=== PATIENT | female | born 1950 | race Caucasian/White ===

== ENCOUNTER 2018-08-31 16:35 | Emergency (ER) | payer MEDICARE ==
[2018-08-31] MEDS ORDERED: 0.9 % SODIUM CHLORIDE 1,000 ML IV ONE (16:55)
--- NOTE | 2018-08-31 16:58 | ED Physician Documentation ---
General Adult - HISTORIAN Historian: patient - HPI Stated Complaint: slurred speech on and off x 1 week Chief Complaint: General Adult Onset: days ago (7) Timing: still present Severity: mild Further Comments: yes (Per niece with her last week she had several days where when she talked to her on the phone she did not pick her words right in response and she acted confused with talk. She did not seek care. She states she took the pt to dinner last night and there were only "some" issues with speech and talk. She states she talked to her at 0900 this am and she was "off" so she went to see her and her speech did not match conversation. She has been able to walk and move without incident. She has no other complaints. She has HTN that she is aware of and does not take her meds.) - ROS CONST: no problems EYES/ENT: denies: problems with vision, sore throat CVS/RESP: none GI/: none MS/SKIN/LYMPH: none NEURO/PSYCH: difficulty with speech. denies: difficulty walking - PAST HX Past History: hypertension (not treated ) Immunizations: UTD Allergies/Adverse Reactions: Allergies Allergy/AdvReac Type Severity Reaction Status Date / Time No Known Allergies Allergy Verified 08/31/18 17:27 - SOCIAL HX Smoking History: non-smoker Alcohol Use: none Drug Use: none - FAMILY HX Family History: No - REVIEWED ASSESSMENTS Nursing Assessment Reviewed: Yes Vitals Reviewed: Yes Progress - Progress Progress: 1710: [facility] DG 1735: discussed plan of care with pt and niece DG 1809: Dr Sainz is accepting [facility] ED Results Lab/Radiology - Radiology Radiology Impressions: Head CT without contrast History: Aphasia and slurred speech with altered mental status Technique: Axial images were obtained from the skull base to the vertex without IV contrast. Findings: There is age-related cortical volume loss. 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 Mild areas periventricular white matter lucency are present consistent with mild small vessel ischemic disease. There is no positive mass effect or intra/extra-axial hemorrhage. 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 Paranasal sinuses and mastoid air cells are clear. Impression: No acute intracranial abnormality. 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 These findings were discussed with Dr. Bañuelos in the emergency room on August 31, 2018 at 1653 central standard time Electronically signed on Aug 31, 2018 4:57:06 PM COUNTER INTELLIGENCE by: Dulce Mckay - Orders Orders: ED Orders Category Date Time Status IV Started NOW Care 08/31/18 16:[address] BRAIN W/O CONTRAST Stat Exams 08/31/18 Ordered CBC/PLATELET/DIFF Routine Lab 08/31/18 Ordered CMP Routine Lab 08/31/18 Ordered CREATINE KINASE Routine Lab 08/31/18 Ordered LACTATE Stat Lab 08/31/18 Ordered PT-INR Routine Lab 08/31/18 Ordered PTT Routine Lab 08/31/18 Ordered 0.9 % Sodium Chloride [Normal Saline] 1,000 ml Med 08/31/18 16:55 Ordered IV NOW EKG WITH COMPARISON Stat Ther 08/31/18 Ordered General Adult Physical Exam - PHYSICAL EXAM GENERAL APPEARANCE: no distress EENT: eye inspection normal, ENT inspection normal, no signs of dehydration, other (droop left eye - no other facial droop ) NECK: normal inspection RESPIRATORY: no resp distress, chest non-tender, breath sounds normal CVS: reg rate & rhythm, heart sounds normal, equal pulses ABDOMEN: soft, no distension BACK: normal inspection, no CVA tenderness SKIN: warm/dry, normal color EXTREMITIES: non-tender, normal range of motion, other (equal strength on both limbs. ) NEURO: other (she is alert. She is not answering appropriately . Date = march --- person with her = nikita (not her name) ) Discharge Clincal Impression: Aphasia Referrals: Primary Doctor,No [Primary Care Provider] - 2 Days Comments: Dr Sainz accepting [facility] DG Condition: Stable Disposition: XFER SHT-TRM HOSP Decision to Admit: NO Date of Decison to Admit: 08/31/18 Decision Time: 18:11
--- NOTE | 2018-08-31 17:00 | Diagnostic Imaging Report ---
DEVON RUST [facility] [address] [facility] [address] [address] Report Submission Date: Aug 31, 2018 4:57:06 PM [employer] Patient Study Name: CORTNEY CARLSON Date: Aug 31, 2018 4:39:00 PM [employer] Modality Type: CT Gender: F Description: : 48 Institution: [facility] Physician: DEVON RUST Head CT without contrast History: Aphasia and slurred speech with altered mental status Technique: Axial images were obtained from the skull base to the vertex without IV contrast. Findings: There is age-related cortical volume loss. 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 Mild areas periventricular white matter lucency are present consistent with mild small vessel ischemic disease. There is no positive mass effect or intra/extra- axial hemorrhage. 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 Paranasal sinuses and mastoid air cells are clear. Impression: No acute intracranial abnormality. 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 These findings were discussed with Dr. Rust in the emergency room on August 31, 2018 at 1653 central standard time Electronically signed on Aug 31, 2018 4:57:06 PM [employer] by: Dulce ARIZA
[2018-08-31 17:13] LABS: BASOPHILS % 0.6 (0.0-1.5); EOSINOPHILS % 2.6 % (0.0-6.8); MEAN CORPUSCULAR HEMOGLOBIN 31.3 pg (28.0-34.0); MONOCYTES % 5.3 % (0.0-11.0); NEUTROPHILS # 5.2 # k/uL (1.4-7.7)
[2018-08-31 17:19] LABS: eGFR (Non-African) > 60
[2018-08-31 18:06] VITALS: BP 239/111
== END 2018-08-31 18:28 | disposition short-term general hospital (02) ==
LOC: ED 16:35
DX: R47.01 Aphasia (principal)
CPT/HCPCS: 36415; 70450; 80053; 82550; 83605; 85025; 85610; 85730; 99285; S1016